=== PATIENT | female | born 1965 | race Caucasian/White ===

== ENCOUNTER 2017-12-12 14:58 | Outpatient (CLI) | payer OTHER | END 2017-12-12 14:59 | disposition home or self-care (01) | LOC: BICMAMMO 14:58 | PROVIDERS: ATTEND Obstetrics & Gynecology | DX: Z12.31 Encounter for screening mammogram for malignant neoplasm of breast (principal) | CPT/HCPCS: 77063; 77067 ==

== ENCOUNTER 2018-12-13 08:52 | Outpatient (CLI) | payer OTHER ==
--- NOTE | 2018-12-13 10:16 | MMO ---
Bilateral MAMMO Bilat Screen [facility]. CLINICAL HISTORY: Patient is 53 years old and is seen for screening. The patient has no family history of breast cancer. The patient has no personal history of cancer. VIEWS: The views performed were: bilateral craniocaudal with tomosynthesis and bilateral mediolateral oblique with tomosynthesis. FILMS COMPARED: The present examination has been compared to prior imaging studies performed at [facility] on 11/18/2014, 11/25/2015, 12/09/2016 and 12/12/2017. MAMMOGRAM FINDINGS: There are scattered fibroglandular densities. There are stable benign appearing calcifications seen in both breasts. There are no suspicious masses, suspicious calcifications, or new areas of architectural distortion. IMPRESSION: THERE IS NO MAMMOGRAPHIC EVIDENCE OF MALIGNANCY. A ROUTINE FOLLOW-UP MAMMOGRAM IN 1 YEAR IS RECOMMENDED. THE RESULTS OF THIS EXAM WERE SENT TO THE PATIENT. ACR BI-RADS Category 2 - Benign finding MAMMOGRAPHY NOTE: 1. A negative mammogram report should not delay a biopsy if a dominant of clinically suspicious mass is present. 2. Approximately 10% to 15% of breast cancers are not detected by mammography. 3. Adenosis and dense breasts may obscure an underlying neoplasm.
== END 2018-12-13 08:53 | disposition home or self-care (01) ==
LOC: BICMAMMO 08:52
PROVIDERS: ATTEND Obstetrics & Gynecology
DX: Z12.31 Encounter for screening mammogram for malignant neoplasm of breast (principal)
CPT/HCPCS: 77063; 77067

== ENCOUNTER 2019-01-19 08:26 | Outpatient (CLI) | payer OTHER ==
--- NOTE | 2019-01-19 09:21 | BD ---
DEXA BONE DENSITOMETRY: (Dual energy X-ray Absorptiometry) DATE: 01-19-19 HISTORY: 53-year-old white female for age-related, post-menopausal osteoporosis screening examination. Height: 65 Weight: 168 lbs Menopause age: 37 years COMPARISON: None available. FINDINGS: The bone mineral density (BMD) is given in grams per square centimeter (g/cm2): LUMBAR SPINE: BMD(g/cm2) T-score Z-score L1: 0.977 -0.1 -0.9 L2: 1.119 0.8 1.9 L3: 1.078 -0.1 1.1 L4: 1.014 0.4 0.8 Total: 1.045 0.0 1.0 HIP: Femoral neck: 0.885 0.3 1.4 Total: 1.080 1.1 1.9 IMPRESSION: 1) The mean bone mineral density of the lumbar spine is normal. Fracture risk is not increased. 2) The bone mineral density of the femoral neck is normal. Fracture risk is not increased. JN R POS: CET
== END 2019-01-19 08:27 | disposition home or self-care (01) ==
LOC: BICMAMMO 08:26
PROVIDERS: ATTEND Obstetrics & Gynecology
DX: Z13.820 Encounter for screening for osteoporosis (principal)
CPT/HCPCS: 77080

== ENCOUNTER 2019-03-05 12:51 | Outpatient (CLI) | payer OTHER ==
--- NOTE | 2019-03-05 14:41 | RAD ---
PA AND LATERAL CHEST: HISTORY: Dyspnea. COMPARISON: None. FINDINGS: Heart size and mediastinum are within normal limits. Lungs are clear of infiltrates. No significant bony findings. IMPRESSION: No active intrathoracic disease. POS: OFF
== END 2019-03-05 12:52 | disposition home or self-care (01) ==
LOC: RAD 12:51
PROVIDERS: ATTEND Internal Medicine Critical Care Medicine
DX: R06.00 Dyspnea, unspecified (principal)
CPT/HCPCS: 71046

== ENCOUNTER 2019-07-09 08:52 | Outpatient (CLI) | payer OTHER ==
--- NOTE | 2019-07-10 10:05 | NM ---
NUCLEAR MEDICINE THYROID SCAN AND UPTAKE: DATE: 07/10/2019. HISTORY: ICD-10: E05.90, thyrotoxicosis, unspecified without thyroid toxic crisis or storm. TECHNIQUE: 0.625 mCi of I-123 administered p.o. Six-hour and 24- hour radioiodine uptake performed. Thyroid scintigraphy obtained in 3 views. FINDINGS: Radiopharmaceutical uptake is homogeneous in the left and right lobes without focal hot or cold nodul es identified. Six-hour uptake: 62% (normal range 6-18%). 24-hour uptake: 79% (normal range 10-30%). IMPRESSION: Evidence for hyperthyroidism due to Grave's disease. POS: CET
== END 2019-07-09 08:53 | disposition home or self-care (01) ==
LOC: NM 08:52
PROVIDERS: ATTEND Internal Medicine Endocrinology, Diabetes & Metabolism
DX: E05.00 Thyrotoxicosis with diffuse goiter without thyrotoxic crisis or storm (principal)
CPT/HCPCS: 78014; A9516

== ENCOUNTER 2019-07-20 12:34 | Outpatient (CLI) | payer OTHER ==
--- NOTE | 2019-07-20 14:54 | NM ---
EXAM: NM Thyroid I 131 Initial Trtmt PROVIDED CLINICAL HISTORY: Thyrotoxicosis with diffuse thyroid goiter. Thyroid uptake and scan on 07/10/2019 demonstrated increas ed uptake of radiotracer suggesting hyperthyroidism. Thyroid I-131 treatment was requested. FINDINGS/IMPRESSION: Nuclear medicine thyroid I-131 treatment option was discussed with the patient. Precautionary measure s to be followed after I-131 treatment was discussed at length with the patient. The patient was also provided a written information sheet also listing precautionary measures to follow. The patient verbalized understanding of the need for thyroid I-131 treatment and the importance of following the precautionary measures, and informed consent was obtained. The patient was then administered 13.8 mCi I-131 capsule by mouth at 1417 hours on 07/20/2019. Patient was briefly monitored in the radiology Department for 30 minutes prior to discharge.
== END 2019-07-20 12:35 | disposition home or self-care (01) ==
LOC: NM 12:34
PROVIDERS: ATTEND Internal Medicine Endocrinology, Diabetes & Metabolism
DX: E05.00 Thyrotoxicosis with diffuse goiter without thyrotoxic crisis or storm (principal); E05.90 Thyrotoxicosis, unspecified without thyrotoxic crisis or storm
CPT/HCPCS: 79005; A9517

== ENCOUNTER 2019-10-31 07:44 | Day surgery (SDC) | payer OTHER ==
[2019-10-31] MEDS ORDERED: Fentanyl 100 MCG/2 ML VIAL ONE (07:56)
[2019-10-31] MEDS ORDERED: Sodium Bicarbonate 2.5 MEQ/5 ML VIAL ONE (07:57)
[2019-10-31] MEDS ORDERED: Lidocaine 1% PF 5 ML VIAL ONE (07:57)
[2019-10-31] MEDS ORDERED: Midazolam HCl 2 mg/2 ml Vial ONE (07:57)
[2019-10-31 08:02] LABS: #Basophils 0.1 thou/uL (0.0-0.2); #Eosinphils 0.5 thou/uL (0.0-0.7); #Lymphocytes 2.9 thou/uL (1.20-3.40); #Monocytes 0.6 thou/uL (0.11-0.59); #Neutrophils 4.6 thou/uL (1.40-6.50); %Basophils 1.1 % (0.0-1.0); %Eosinophils 5.4 % (0.0-10.0); %Lymphocytes 33.4 % (21.0-51.0); %Monocytes 6.6 % (0.0-10.0); %Neutrophils 53.5 % (42.0-75.0); Hemoglobin 14.5 g/dL (12.0-16.0); Mean Corpuscular HGB CONC 34.4 g/dL (32.0-36.0); Mean Corpuscular Hemoglobin 31.2 pg (27.0-31.0); Mean Corpuscular Volume 90.8 fL (78.0-98.0); Mean Platelet Volume 8.3 fL (7.4-10.4); Platelet Count 274 thou/uL (130-400); RBC Distribution Width 13.6 % (11.5-14.5); Red Blood Cell (RBC) Count 4.64 mill/uL (4.20-5.40); White Blood Cell (WBC) Count 8.7 thou/uL (4.8-10.8)
[2019-10-31 08:09] LABS: INR-International Normal Ratio 0.9; PTT 30.5 SEC (22.9-36.1)
[2019-10-31 09:04] VITALS: BP 128/79; TEMP 98.9
[2019-10-31] MEDS ORDERED: Acetaminophen 500 MG TAB ONE (11:42)
--- NOTE | 2019-10-31 15:14 | ULT ---
Ultrasound hepatic Doppler duplex: DATE: 10/31/2019 HISTORY: 54-year-old female with elevated liver function tests. TECHNIQUE: Grayscale, color-flow, and spectral analysis, of liver and major vessels associated with the liver, a nd spleen. FINDINGS: Spleen is 9.5 x 3 x 3 cm, slightly small. Hepatopetal flow with appropriate spectral waveform of splenic vein, main portal vein, left portal ve in, and right portal vein. Hepatofugal flow with appropriate spectral waveform of right, middle, and left hepatic veins. Hepatic arterial pulsatile flow demonstrated. Hepatic echogenicity within normal limits. Nonspecific sonographic appearance of pancreas. Gallbladder and common bile duct not imaged by legal assistant. IMPRESSION: No abnormality identified
--- NOTE | 2019-10-31 15:31 | ULT ---
Ultrasound-guided random hepatic biopsy: DATE: 10/31/2019 HISTORY: 54-year-old female with abnormal liver enzymes. TECHNIQUE: Signed informed consent obtained. Anterior upper abdominal skin prepared and draped in usual sterile fashion. 25-gauge needle used to apply buffered lidocaine superficially. Under ultrasound guidance, 17-gauge introducer needle advanced to the hepatic capsule, where additional buffered lidocaine was a pplied. Tip of introducer needle was then used to arroyo the hepatic capsule of the left lobe of the liver. 18-gauge biopsy needle advanced in coaxial fashion through the introducer needle. Biopsy g un fired, yielding a single 3.3 cm hepatic tissue sample, which was placed in formalin. Introducer needle removed. Manual compression applied. No complications. Patient tolerated procedure well. Postb iopsy images demonstrate no hematoma. IMPRESSION: Technically successful hepatic biopsy, yielding a single 3.3 cm 18-gauge core tissue sample.
== END 2019-10-31 12:40 | disposition home or self-care (01) ==
LOC: ULT 07:44
PROVIDERS: ATTEND Internal Medicine Gastroenterology
PROC: BF45ZZZ Ultrasonography of Liver (ICD-10-PCS; principal; 2019-10-31)
PROC: 0FB03ZX Excision of Liver, Percutaneous Approach, Diagnostic (ICD-10-PCS; principal; 2019-10-31)
DX: K76.0 Fatty (change of) liver, not elsewhere classified (principal); Z79.899 Other long term (current) drug therapy; Z88.0 Allergy status to penicillin; Z88.2 Allergy status to sulfonamides; Z88.5 Allergy status to narcotic agent; Z91.013 Allergy to seafood; Z91.048 Other nonmedicinal substance allergy status
CPT/HCPCS: 36415; 47000; 76705; 76942; 85025; 85610; 85730; 88307; 88313; J2001; J2250; J3010

== ENCOUNTER 2020-01-08 10:59 | Outpatient (CLI) | payer OTHER ==
--- NOTE | 2020-01-08 12:56 | MMO ---
Bilateral MAMMO Bilat Screen [facility]. CLINICAL HISTORY: Patient is 54 years old and is seen for screening. The patient has no family history of breast cancer. The patient has no personal history of cancer. VIEWS: The views performed were: bilateral craniocaudal with tomosynthesis and bilateral mediolateral oblique with tomosynthesis. FILMS COMPARED: The present examination has been compared to prior imaging studies performed at [facility] on 11/25/2015, 12/09/2016, 12/12/2017 and 12/13/2018. This study has been interpreted with the assistance of computer-aided detection. MAMMOGRAM FINDINGS: There are scattered fibroglandular densities. There are no suspicious masses, suspicious calcifications, or new areas of architectural distortion. IMPRESSION: THERE IS NO MAMMOGRAPHIC EVIDENCE OF MALIGNANCY. A ROUTINE FOLLOW-UP MAMMOGRAM IN 1 YEAR IS RECOMMENDED. THE RESULTS OF THIS EXAM WERE SENT TO THE PATIENT. ACR BI-RADS Category 1 - Negative MAMMOGRAPHY NOTE: 1. A negative mammogram report should not delay a biopsy if a dominant of clinically suspicious mass is present. 2. Approximately 10% to 15% of breast cancers are not detected by mammography. 3. Adenosis and dense breasts may obscure an underlying neoplasm. Reported by: KENYETTA VILLA MD Electonically Signed: [id number]
== END 2020-01-08 11:00 | disposition home or self-care (01) ==
LOC: BICMAMMO 10:59
PROVIDERS: ATTEND Obstetrics & Gynecology
DX: Z12.31 Encounter for screening mammogram for malignant neoplasm of breast (principal)
CPT/HCPCS: 77063; 77067

== ENCOUNTER 2020-04-21 10:28 | Outpatient (CLI) | payer BC ==
--- NOTE | 2020-04-21 11:33 | MRI ---
EXAM: MRI left knee PROVIDED CLINICAL HISTORY: Pain COMPARISON: None FINDINGS: The anterior cruciate ligament, posterior cruciate ligament, medial collateral ligament and lateral c ollateral ligamentous complex demonstrate an intact MR appearance, as does the extensor mechanism. There is a displaced flap tear of the body of the medial meniscus with displacement of meniscal tissu e within the medial meniscotibial recess. The lateral meniscus demonstrates no evidence for tear. There is articular cartilage irregularity involving the central weightbearing portions of the medial femorotibial joint without full-thickness articular cartilage loss apparent. There is articular cartilage irregularity with foci of full-thickness articular cartilage fissuring involving the median ridge and lateral facet of the patella. There is a mild knee joint effusion. There is Madera's cyst formation and conspicuous fluid in the reg ion of the popliteus hiatus. There is fluid signal intensity about the insertional semimembranosus separate from Madera's cyst fluid IMPRESSION: 1. Displaced flap tear of the body of the medial meniscus. 2. Patellar and medial femorotibial articular chondrosis. 3. Semimembranosus bursitis. 4. Mild knee joint effusion with Madera's cyst formation.
== END 2020-04-21 10:29 | disposition home or self-care (01) ==
LOC: TBSIIMAG 10:28
PROVIDERS: ATTEND Orthopaedic Surgery
DX: M23.92 Unspecified internal derangement of left knee (principal); M23.204 Derangement of unspecified medial meniscus due to old tear or injury, left knee; M25.462 Effusion, left knee; M70.52 Other bursitis of knee, left knee

== ENCOUNTER 2020-05-07 07:16 | Outpatient (CLI) | payer BC ==
[2020-05-07 18:34] LABS: #Basophils 0.1 10x3/uL (0.0-0.2); #Eosinphils 0.4 10x3/uL (0.0-0.5); #Monocytes 0.7 10x3/uL (0.0-1.1); #Neutrophils 5.9 10x3/uL (1.5-8.4); %Basophils 0.5 % (0.0-2.0); %Eosinophils 3.8 % (0.0-6.0); %Lymphocytes 31.9 % (18.0-47.0); %Monocytes 6.7 % (0.0-10.0); %Neutrophils 56.8 % (40.0-75.0); Hemoglobin 13.5 g/dL (12.0-16.0); Mean Corpuscular HGB CONC 33.5 G/DL (32.0-36.0); Mean Corpuscular Hemoglobin 30.5 PG (27.0-33.0); Mean Corpuscular Volume 91.2 fl (80.0-100.0); Platelet Count 359 10x3/uL (130-400); RBC Distribution Width 11.7 % (11.5-14.5); Red Blood Cell (RBC) Count 4.42 10x6/uL (3.90-5.20); White Blood Cell (WBC) Count 10.5 10x3/uL (4.5-11.0)
[2020-05-07 18:48] LABS: Anion Gap 15 mmol/L (10-20); BUN (Urea Nitrogen) 23 mg/dL (9.8-20.1); Calc. Creatinine Clearance 0 mL/min (70-130); Carbon Dioxide 25 mmol/L (22-29); Chloride 103 mmol/L (98-107); Estimated GFR-MDRD 66; Glucose 91 mg/dL (70-105); Potassium 4.5 mmol/L (3.5-5.1); Sodium 138 mmol/L (136-145)
[2020-05-08 09:36] LABS: SARS-CoV-2 MS2 Positive; SARS-CoV-2 N Gene Negative; SARS-CoV-2 S Gene Negative; SARS-CoV-2 by NAA Not Detected (NotDetected); SARS-CoV-2 orf1ab Negative
== END 2020-05-07 07:17 | disposition home or self-care (01) ==
LOC: LABBT 07:16
PROVIDERS: ATTEND Orthopaedic Surgery
DX: Z01.818 Encounter for other preprocedural examination (principal); Z20.828 Contact with and (suspected) exposure to other viral communicable diseases; M23.92 Unspecified internal derangement of left knee
CPT/HCPCS: 80048; 85025; 87635; 93005; 93010; U0003

== ENCOUNTER 2020-05-12 09:07 | Day surgery (SDC) | payer BC ==
--- NOTE | 2020-05-08 08:55 | HP ---
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 She has had persistent symptoms despite rest, restriction of activities, anti-inflammatory medications, and previous cortisone injection. The pain is now interfering with day-to-day activities including walking, getting dressed, and working. She has had no previous knee problems. PAST MEDICAL HISTORY: The patient is otherwise in good health. She has a history of thyroid disease, Graves disease, and elevated liver enzymes. CURRENT MEDICATIONS: Include: 1. Multivitamin. 2. Synthroid. 3. Irbesartan ALLERGIES: SHE IS ALLERGIC TO PENICILLIN, CODEINE, AND SULFA. FAMILY HISTORY: Otherwise unremarkable. SOCIAL HISTORY: Otherwise unremarkable. REVIEW OF SYSTEMS: Otherwise unremarkable. PHYSICAL EXAMINATION: GENERAL: Reveals a healthy female. HEENT: Unremarkable. NECK: Supple. CHEST: Clear. HEART: Regular rate and rhythm. ABDOMEN: Soft and nontender. PELVIC: Deferred. RECTAL: Deferred. BREASTS: Deferred. EXTREMITIES: Pertinent findings related to the left knee. There is no effusion. There is mild puffiness. There is tenderness over the medial joint line. Range of motion is 0 to 125 degrees. There is pain with Jerry's maneuver. Neurovascular exam is intact. DIAGNOSTIC STUDIES: X-rays of the left knee reveal minimal degenerative changes primarily in the patellofemoral joint. MRI scan of the left knee reveals displaced flap tear of the body of the medial meniscus and mild degenerative changes. IMPRESSION: Internal derangement of left knee with medial meniscal tear. PLAN: Arthroscopy of the left knee with partial medial meniscectomy and/or debridement and shaving. The nature of the surgery, length of recovery, and potential complications such as infection, loss of motion, incomplete relief, thromboembolic phenomenon, neurovascular injury, posttraumatic degenerative arthritis, recurrent tear, need for additional treatment and repeat surgery have been discussed in detail. Job ID: [id number] [facility]
[2020-05-09 13:00] VITALS: BMI 27.9
[2020-05-12] MEDS ORDERED: diphenhydrAMINE 50 MG/ML VIAL ONE (10:38)
[2020-05-12] MEDS ORDERED: PROPOFOL 200 MG/20 ML VIAL ONE (10:38)
[2020-05-12] MEDS ORDERED: Ondansetron PF 4 MG/2 ML Vial ONE (10:38)
[2020-05-12] MEDS ORDERED: Ketorolac Tromethamine 30 MG/ML VIAL ONE (10:38)
[2020-05-12] MEDS ORDERED: Lidocaine 1% PF 5 ML VIAL ONE (10:38)
[2020-05-12] MEDS ORDERED: Dexamethasone 20 MG/5 ML VIAL ONE (10:38)
[2020-05-12] MEDS ORDERED: Fentanyl 100 MCG/2 ML VIAL ONE ×4 (11:59→13:40)
[2020-05-12] MEDS ORDERED: Clindamycin/D5W 900 mg/50 ml Premix Bag ONE (12:05)
[2020-05-12] MEDS ORDERED: Bupivacaine PF 0.5% 30 ML VIAL ONE (12:09)
[2020-05-12] MEDS ORDERED: Lidocaine 1% w/Epinephrine 1:100K 20 ML VIAL ONE (12:09)
--- NOTE | 2020-05-12 14:08 | OP ---
DATE OF PROCEDURE: 05/12/2020 ANESTHESIA: General. PREOPERATIVE DIAGNOSIS: Medial meniscal tear, left knee. POSTOPERATIVE DIAGNOSES: 1. Medial meniscal tear, left knee. 2. Early degenerative arthritis, left knee. PROCEDURE PERFORMED: Arthroscopy of left knee with partial medial meniscectomy. OPERATIVE FINDINGS: Examination under anesthesia revealed the knee to be stable. At arthroscopy, there was grade 2 and early grade 3 chondromalacia of the central portion of patella with some crabmeat changes over the central portion, but no areas of exposed bone. Examination of medial compartment revealed a relatively large flap tear at the junction of the mid and posterior horns of the medial meniscus, which was flipped underneath the meniscus at the meniscotibial recess. There was some slight degeneration along the remaining border of the medial meniscus extending posteriorly. There were grade 2 and 3 changes of the weightbearing surface of the medial femoral condyle measuring approximately 2 x 2 cm, but no areas of exposed bone. ACL was intact. Lateral meniscus and lateral compartment were normal. DESCRIPTION OF PROCEDURE: After satisfactory anesthesia was induced in supine position, the patient was placed in the leg cummings and then prepped and draped in routine manner. The left leg was elevated and exsanguinated with an Esmarch bandage and the tourniquet inflated to 300 mmHg. EarDish arthroscope was introduced into the anterolateral portal, probed through an anteromedial portal, and inflow and outflow accomplished through the scope using the EarDish arthroscopy pump. Arthroscopy was carried out and the above findings were noted. All findings were documented in the video printer. Hard copies were made. However, the computer for some reason did not record the pre-medial meniscal finding showing the tear and did not record the ACL. The remaining findings were documented. The medial meniscal tear was debrided with the use of basket forceps and motorized shaver. The remaining rim was balanced and probed and found to be stable. There was still an intact rim of 5 to 6 mm. The medial femoral condyle was debrided with a motorized shaver as was the undersurface of the patella. The scope was then introduced in the anteromedial portal and all compartments visualized and no additional pathology found. The knee was copiously irrigated through the scope and all instruments were withdrawn. A mixture of 30 mL of 0.25% Marcaine and 20 mL of 1% lidocaine with epinephrine was prepared and 30 mL of this instilled in the knee joint and additional 20 mL injected about the portal sites. The portal sites were closed with 3-0 nylon and a sterile bulky compressive dressing was applied. The tourniquet deflated after 19 minutes. The foot promptly pinked up and the patient was awakened and taken to the recovery room in stable condition. There were no apparent intraoperative complications. The estimated blood loss was negligible. The patient will be discharged home in satisfactory condition, instructed on ice and elevation, home exercise program with Physical Therapy Department, and written wound care instructions. She has [place] 5 at home for pain as well as Zofran for nausea. She will be rechecked in my office in 10 to 14 days or sooner if there are any problems prior to that time. Job ID: [id number]
[2020-05-12] MEDS ORDERED: HYDROcodone/Acetaminophen 5/325 mg Tablet ONE (14:54)
[2020-05-12] MEDS ORDERED: Ondansetron ODT 4 MG TAB ONE (15:49)
== END 2020-05-12 17:14 | disposition home or self-care (01) ==
LOC: SDC 09:07
PROVIDERS: ATTEND Orthopaedic Surgery
PROC: 0SBD4ZZ Excision of Left Knee Joint, Percutaneous Endoscopic Approach (ICD-10-PCS; principal; 2020-05-12)
DX: S83.242A Other tear of medial meniscus, current injury, left knee, initial encounter (principal); M22.42 Chondromalacia patellae, left knee; M17.12 Unilateral primary osteoarthritis, left knee; E05.00 Thyrotoxicosis with diffuse goiter without thyrotoxic crisis or storm; Z79.899 Other long term (current) drug therapy; Z88.0 Allergy status to penicillin; Z88.2 Allergy status to sulfonamides; Z88.5 Allergy status to narcotic agent; Z88.8 Allergy status to other drugs, medicaments and biological substances; Z91.013 Allergy to seafood; W18.41XA Slipping, tripping and stumbling without falling due to stepping on object, initial encounter
CPT/HCPCS: J1100; J1200; J1885; J2405; J2704; J3010; J3490; Q0162; S0020

== ENCOUNTER 2021-01-09 10:04 | Outpatient (CLI) | payer BC | END 2021-01-09 10:05 | disposition home or self-care (01) | LOC: BICMAMMO 10:04 | DX: Z12.31 Encounter for screening mammogram for malignant neoplasm of breast (principal) | CPT/HCPCS: 77063; 77067 ==

== ENCOUNTER 2022-01-11 11:10 | Outpatient (CLI) | payer BC | END 2022-01-11 11:11 | disposition home or self-care (01) | LOC: BICMAMMO 11:10 | PROVIDERS: ATTEND Obstetrics & Gynecology | DX: Z12.31 Encounter for screening mammogram for malignant neoplasm of breast (principal) | CPT/HCPCS: 77063; 77067 ==